=== PATIENT | female | born 1980 | race Caucasian/White ===

== ENCOUNTER 2021-07-20 11:52 | Outpatient (REF) | payer OTHER, SELFPAY ==
--- NOTE | ~2021-07-20 | XR_ITS ---
EXAMINATION: XR KNEE, BILATERAL AP KNEE STANDING XR KNEE, BILATERAL CLINICAL INFORMATION: Bilateral knee pain. COMPARISON: None TECHNIQUE: AP bilateral knee standing. 2 views each knee. FINDINGS: AP BILATERAL KNEE: There is mild reduction in the medial and lateral compartment joint space left knee and mild loss of joint space medial compartment right knee. There are bilateral proximal tibial hardware and screws for old healed lateral tibial plateau fractures. No acute fracture or dislocation seen. Extensive soft tissue surgical changes are seen along the left medial thigh and proximal lower leg likely vascular. LEFT KNEE: Lateral and sunrise view left knee reveals mild reduction in the patellofemoral compartment joint space. No visible fracture, dislocation or subluxation seen. There is no abnormal joint effusion. RIGHT KNEE: Lateral and sunrise view reveals maintained patellofemoral joint space without loose bodies, joint effusion or bony erosive changes. There is mild bilateral knee osteopenia. XR/XR knee RT 2V IMPRESSION: Hardware along bilateral proximal tibia for old healed lateral tibial plateau fractures. The hardware is intact. Mild degenerative changes are seen within the tricompartment left knee and medial compartment right knee. No acute fracture or dislocation. No suprapatellar joint effusion seen.
--- NOTE | ~2021-07-20 | XR_ITS ---
EXAMINATION: XR KNEE, BILATERAL AP KNEE STANDING XR KNEE, BILATERAL CLINICAL INFORMATION: Bilateral knee pain. COMPARISON: None TECHNIQUE: AP bilateral knee standing. 2 views each knee. FINDINGS: AP BILATERAL KNEE: There is mild reduction in the medial and lateral compartment joint space left knee and mild loss of joint space medial compartment right knee. There are bilateral proximal tibial hardware and screws for old healed lateral tibial plateau fractures. No acute fracture or dislocation seen. Extensive soft tissue surgical changes are seen along the left medial thigh and proximal lower leg likely vascular. LEFT KNEE: Lateral and sunrise view left knee reveals mild reduction in the patellofemoral compartment joint space. No visible fracture, dislocation or subluxation seen. There is no abnormal joint effusion. RIGHT KNEE: Lateral and sunrise view reveals maintained patellofemoral joint space without loose bodies, joint effusion or bony erosive changes. There is mild bilateral knee osteopenia. XR/XR knee standing BI IMPRESSION: Hardware along bilateral proximal tibia for old healed lateral tibial plateau fractures. The hardware is intact. Mild degenerative changes are seen within the tricompartment left knee and medial compartment right knee. No acute fracture or dislocation. No suprapatellar joint effusion seen.
--- NOTE | ~2021-07-20 | XR_ITS ---
EXAMINATION: XR KNEE, BILATERAL AP KNEE STANDING XR KNEE, BILATERAL CLINICAL INFORMATION: Bilateral knee pain. COMPARISON: None TECHNIQUE: AP bilateral knee standing. 2 views each knee. FINDINGS: AP BILATERAL KNEE: There is mild reduction in the medial and lateral compartment joint space left knee and mild loss of joint space medial compartment right knee. There are bilateral proximal tibial hardware and screws for old healed lateral tibial plateau fractures. No acute fracture or dislocation seen. Extensive soft tissue surgical changes are seen along the left medial thigh and proximal lower leg likely vascular. LEFT KNEE: Lateral and sunrise view left knee reveals mild reduction in the patellofemoral compartment joint space. No visible fracture, dislocation or subluxation seen. There is no abnormal joint effusion. RIGHT KNEE: Lateral and sunrise view reveals maintained patellofemoral joint space without loose bodies, joint effusion or bony erosive changes. There is mild bilateral knee osteopenia. XR/XR knee LT 2V IMPRESSION: Hardware along bilateral proximal tibia for old healed lateral tibial plateau fractures. The hardware is intact. Mild degenerative changes are seen within the tricompartment left knee and medial compartment right knee. No acute fracture or dislocation. No suprapatellar joint effusion seen.
== END 2021-07-20 11:53 | disposition home or self-care (01) ==
LOC: HO.HOSX 11:52
PROVIDERS: Visit Provider Orthopaedic Surgery
DX: M17.2 Bilateral post-traumatic osteoarthritis of knee (principal); Q79.60 Ehlers-Danlos syndrome, unspecified; Z95.828 Presence of other vascular implants and grafts; Z98.890 Other specified postprocedural states
CPT/HCPCS: 73560; 73565